=== PATIENT | male | born 2000 | race Asian ===

== ENCOUNTER 2023-12-09 10:40 | Inpatient (IN) | payer OTHER ==
[~2023-12-09] VITALS: Ht 167.6 cm; Wt 68.1 kg
[2023-12-09 11:40] LABS: BASOPHILS % (AUTO) 0.6 % (0.0-2.0); EOSINOPHILS % (AUTO) 0.4 % (1.0-6.0); HEMATOCRIT 45.3 % (41-53); HEMOGLOBIN 15.3 g/dL (13.5-17.5); LYMPHOCYTES # (AUTO) 2.4 K/uL (1.0-4.8); LYMPHOCYTES % (AUTO) 21.4 % (22.0-44.0); MEAN CORPUSCULAR HEMOGLOBIN 29.4 pg (26.0-34.0); MEAN CORPUSCULAR HGB CONC 33.8 G/dL (31.0-37.0); MEAN CORPUSCULAR VOLUME 87 fL (80-100); MONOCYTES # (AUTO) 0.9 K/uL (0.1-1.0); MONOCYTES % (AUTO) 8.2 % (2.0-9.0); NEUTROPHILS # (AUTO) 7.7 K/uL (1.8-7.7); NEUTROPHILS % (AUTO) 69.4 % (40.0-70.0); PLATELET COUNT (AUTO) 414 K/uL (150-450); RED CELL DISTRIBUTION WIDTH 12.7 % (11.5-14.5); WHITE BLOOD COUNT (AUTO) 11.1 K/uL (4.5-11.0)
[2023-12-09 11:49] LABS: ANION GAP 9 mmol/L (8-16); CALCIUM, TOTAL 9.5 mg/dL (8.8-10.5); CARBON DIOXIDE 26 mmol/L (22-29); CHLORIDE 102 mmol/L (98-107); CREATININE 1.07 mg/dL (0.60-1.30); GLOMERULAR FILTR. RATE CALC > 60 mL/min (>60); GLUCOSE,RANDOM 96 mg/dL (70-110); POTASSIUM 3.9 mmol/L (3.5-5.1); SODIUM SERUM 137 mmol/L (136-145); UREA NITROGEN, BLOOD 18 mg/dL (7-18)
[2023-12-09 11:55] LABS: ALANINE AMINOTRANSFERASE 34 U/L (12-78); ALBUMIN 5.2 g/dL (3.4-5.0); ALKALINE PHOSPHATASE 79 U/L (46-116); ASPARTATE AMINOTRANSFERASE 33 U/L (15-37); BILIRUBIN,TOTAL 0.4 mg/dL (0.1-1.0); TOTAL PROTEIN, SERUM 8.5 g/dL (6.4-8.2)
[2023-12-09 12:08] LABS: ALCOHOL, BLOOD (SERUM) < 3 mg/dL (0-10)
[2023-12-09 12:19] LABS: COVID AG,FIA SOURCE NASAL SWAB
[2023-12-09 12:44] LABS: SARS-COV2 (COVID) ANTIGEN,FIA Negative (Negative)
[2023-12-09] MEDS ORDERED: HALOPERIDOL 5 MG TABLET PO PRN (12:45)
[2023-12-09] MEDS ORDERED: LORazepam 2 MG TABLET PO PRN (12:45)
[2023-12-09] MEDS ORDERED: ZOLPIDEM TARTRATE 10 MG TABLET PO PRN (12:45)
[2023-12-09 15:37] VITALS: BP 126/90; PULSE 102; RESP 18; TEMP 98; O2SAT 98
[2023-12-09] MEDS ORDERED: ALBUTEROL SULFATE HFA 90 MCG/PUFF 8 GM INHALER IH PRN (21:45)
[2023-12-09] MEDS ORDERED: DOCUSATE SODIUM 100 MG CAPSULE PO PRN (21:45)
[2023-12-09] MEDS ORDERED: OMEPRAZOLE 20 MG CAPSULE PO PRN (21:45)
[2023-12-09] MEDS ORDERED: CloNIDine HCL 0.1 MG TABLET PO PRN (21:45)
[2023-12-09] MEDS ORDERED: IBUPROFEN 600 MG TABLET PO PRN (21:45)
[2023-12-09] MEDS ORDERED: MAG HYDROX/ALUMINUM HYD/SIMETH ES 30 ML SUSPENSION UDCUP PO PRN (21:45)
[2023-12-09] MEDS ORDERED: LOPERAMIDE HCL 2 MG CAPSULE PO PRN (21:45)
[2023-12-09] MEDS ORDERED: BACITRACIN 28 GM OINTMENT TP PRN (21:45)
[2023-12-09] MEDS ORDERED: MAGNESIUM HYDROXIDE SUSPENSION 30 ML UDCUP PO PRN (21:45)
[2023-12-09] MEDS ORDERED: ONDANSETRON HCL 4 MG TABLET PO PRN (21:45)
[2023-12-09] MEDS ORDERED: ACETAMINOPHEN 325 MG TABLET PO PRN (21:45)
[2023-12-09] MEDS ORDERED: BENZOCAINE/MENTHOL LOZENGE PO PRN (21:45)
[2023-12-09] MEDS ORDERED: PETROLATUM,WHITE 28 GM JELLY TP PRN (21:45)
[2023-12-09 22:21] VITALS: BP 113/78; PULSE 99; RESP 19; TEMP 98; O2SAT 98
[2023-12-10 09:07] VITALS: BP 119/80; PULSE 98; RESP 18; TEMP 98.7; O2SAT 97
[2023-12-10] MEDS: FLUoxetine HCL 20 MG CAPSULE PO SCH (14:34)
[2023-12-10 22:04] VITALS: BP 123/75; PULSE 79; RESP 18; TEMP 98.1; O2SAT 97
[2023-12-11] MEDS: FLUoxetine HCL 20 MG CAPSULE PO SCH (08:58)
[2023-12-11 10:04] VITALS: BP 141/85; PULSE 99; RESP 20; TEMP 97.6; O2SAT 99
[2023-12-11] MEDS: ESTRADIOL 1 MG TABLET PO SCH (10:26)
[2023-12-11] MEDS: SPIRONOLACTONE 50 MG TABLET PO SCH (16:47)
[2023-12-11 22:10] VITALS: BP 113/80; PULSE 100; RESP 18; TEMP 97.4; O2SAT 99
[2023-12-12] MEDS: FLUoxetine HCL 20 MG CAPSULE PO SCH (08:49)
[2023-12-12] MEDS: SPIRONOLACTONE 50 MG TABLET PO SCH (08:49)
[2023-12-12] MEDS: ESTRADIOL 1 MG TABLET PO SCH (08:49)
[2023-12-12 10:17] VITALS: BP 104/74; PULSE 86; RESP 16; TEMP 98.1; O2SAT 99
[2023-12-12] MEDS ORDERED: FLUO20CA36 PO (11:48)
[2023-12-12] MEDS ORDERED: SPIR50TA27 PO (11:49)
[2023-12-12] MEDS ORDERED: ESTR-95 PO (11:49)
== END 2023-12-12 18:20 | disposition home or self-care (01) | DRG 881 ==
LOC: EMS 10:40 → 3EI 14:03
PROVIDERS: ADMIT Psychiatry & Neurology Psychiatry; ATTEND Psychiatry & Neurology Psychiatry
DX: F32.9 Major depressive disorder, single episode, unspecified (principal); R45.851 Suicidal ideations; K59.00 Constipation, unspecified; G47.00 Insomnia, unspecified; F41.9 Anxiety disorder, unspecified; Z20.822 Contact with and (suspected) exposure to COVID-19
CPT/HCPCS: 80053; 85025; 99285; G0480